=== PATIENT | female | born 1970 | race Caucasian/White ===

== ENCOUNTER 2018-03-26 15:32 | Emergency (ER) | END 2018-03-26 16:49 | disposition home or self-care (01) ==

== ENCOUNTER 2018-06-02 03:32 | Emergency (ER) | payer MEDICAID, OTHER ==
[~2018-06-02] VITALS: Wt 84.7 kg
[~2018-06-02 03:32] MED LIST: IBUP-1542 PO
--- NOTE | 2018-06-02 03:51 | ERD ---
ER Documentation Chief Complaint Chief Complaint POSSIBLE RT OVARIAN CYST X'S 1 MONTHS HPI The patient is a 47-year-old female, presenting to the ER because of possible right ovarian cyst after she was examined by her physician more than a month ago on routine gynecological exam. She has not been able to obtain a pelvic ultrasound, she denies fever, chills, weight loss, neck pain, chest pain, dyspnea, abdominal pain, vomiting, dysuria, diarrhea. She does not drink, smokes socially Past medical/surgical history: None ROS All systems reviewed and are negative except as per history of present illness. Medications Home Meds Active Scripts Cephalexin* (Cephalexin*) 500 Mg Capsule, 500 MG PO Q6, #28 CAP Prov:SANJEEV OH MD 06/02/18 Sulfamethoxazole/Trimethoprim* (Bactrim Ds* Tablet) 1 Each Tablet, 1 TAB PO BID, #14 TAB Prov:SANJEEV OH MD 06/02/18 Discontinued Scripts Ibuprofen* (Motrin*) 600 Mg Tab, 600 MG PO Q6, #30 TAB Prov:SEAN PATEL PA-C 03/26/18 Allergies Allergies: Coded Allergies: Sulfa (Sulfonamide Antibiotics) (Unverified Allergy, Unknown, RASHES, 06/02/18) clindamycin (Unverified Adverse Reaction, Unknown, NAUSEA; DIZZINESS, 06/02/18) PMhx/Soc History of Surgery: No Anesthesia Reaction: No Hx Neurological Disorder: No Hx Respiratory Disorders: No Hx Cardiac Disorders: No Hx Psychiatric Problems: No Hx Miscellaneous Medical Probl: No Hx Alcohol Use: No Hx Substance Use: No Hx Tobacco Use: No Physical Exam Vitals Vital Signs Date Temp Pulse Resp B/P (MAP) Pulse Ox O2 O2 Flow FiO2 Time Delivery Rate 06/02/18 96.2 68 20 110/75 99 Room Air 04:06 (87) 06/02/18 96.2 81 20 104/74 97 03:36 (84) Physical Exam Const: No acute distress. Head: Atraumatic. Eyes: Normal Conjunctiva. ENT: Normal External Ears, Nose and Mouth. Neck: Full range of motion. No meningismus. Resp: Clear to auscultation bilaterally. Cardio: Regular rate and rhythm. Abd: Soft, non distended, normal bowel sounds, non tender. Skin: No petechiae or rashes. Back: No midline or flank tenderness. Ext: No cyanosis, or edema. Neur: Awake and alert. No focal deficit Psych: Normal Mood and Affect. Results 24 hrs Laboratory Tests Test 06/02/18 04:49 06/02/18 04:51 Bedside Urine pH (LAB) 5.5 Bedside Urine Protein (LAB) Negative Bedside Urine Glucose (UA) Negative Bedside Urine Ketones (LAB) Negative Bedside Urine Blood Negative Bedside Urine Nitrite (LAB) Negative Bedside Urine Leukocyte Esterase (L 1+ POC Beta HCG, Qualitative NEGATIVE Procedures/MDM [place] [address] Radiology Main Line: [phone] DIAGNOSTIC IMAGING REPORT Patient: SAVANNAH MASSEY : 1970 Age: 47 Sex: F MR #: [id number] DOS: 06/02/18 0410 Ordering MD: SANJEEV OH MD Location: E/R Room/Bed: PROCEDURE: US Pelvis. CLINICAL INDICATION: Pelvic pain TECHNIQUE: Multiple sonographic images of the pelvis were obtained utilizing a transabdominal and endovaginal technique. The images were reviewed on a PACS workstation. COMPARISON: None. FINDINGS: The uterus measures 5.8 x 2 on of 4.7 cm. There is no appreciable thickening of the endometrium with measured thickness 1 mm. No uterine lesions identified. The ovaries are not clearly visualized. No adnexal lesions demonstrated. There is no visible pelvic free fluid. IMPRESSION: Unremarkable appearance of the uterus. Ovaries not visualized, likely obscured by shadowing bowel gas. No adnexal lesions or evidence of pelvic free fluid. RPTAT: [facility] Physician Leonela Date Time Electronically viewed and signed by Physician Leonela on 06/02/2018 05:15 xB/ CC: SANJEEV OH MD [phone] MEDICAL MAKING DECISION: The patient is a 47-year-old female, presenting with acute cystitis, is stable for outpatient follow-up The differential diagnoses considered include but are not limited to PID, ovarian cyst, endometriosis, fibroids, appendicitis. Departure Diagnosis: Primary Impression: UTI (urinary tract infection) Condition: Good Comments She was discharged with Keflex I discussed the findings with the patient. I advised the patient to follow-up with the primary physician in about 2-3 days, sooner if needed and return if any concern. Disclaimer: Inadvertent spelling and grammatical errors are likely due to EHR/dictation software use and do not reflect on the overall quality of patient care. Also, please note that the electronic time recorded on this note does not necessarily reflect the actual time of the patient encounter. SANJEEV OH MD Jun 02, 2018 03:51
[2018-06-02] MEDS ORDERED: SULF1TAB31 PO (05:32)
[2018-06-02] MEDS ORDERED: CEPH500C PO (05:33)
[2018-06-02 05:45] VITALS: BP 117/72; PULSE 71; RESP 17
== END 2018-06-02 05:33 | disposition home or self-care (01) ==
LOC: E/R 03:32
DX: N39.0 Urinary tract infection, site not specified (principal); R10.2 Pelvic and perineal pain
CPT/HCPCS: 76830; 76856; 81003; 81025; Z7502

== ENCOUNTER 2018-10-05 21:48 | Emergency (ER) | payer MEDICAID, OTHER ==
[~2018-10-05] VITALS: Wt 86.1 kg
[~2018-10-05 21:48] MED LIST changes: +CEPH500C PO; -IBUP-1542 PO; +SULF1TAB31 PO
[2018-10-05 22:11] VITALS: BP 142/86; PULSE 82; RESP 18
[2018-10-06] MEDS ORDERED: BENZ200C68 PO (01:22)
[2018-10-06] MEDS ORDERED: ALBU18HF INHALATION (01:22)
--- NOTE | 2018-10-06 01:40 | ERD ---
ER Documentation Chief Complaint Chief Complaint CONGESTION, COUGH X'S 1 MONTH HPI Patient is a 47-year-old female with no significant past medical history presenting to the emergency department complains of intermittent cough for the past 1 month. Symptoms moderate in severity. Also reports intermittent nasal congestion. Symptoms are worse during the day. She denies any hemoptysis, fevers, chills, night sweats, or other symptoms at this time. ROS All systems reviewed and are negative except as per history of present illness. Medications Home Meds Active Scripts Albuterol Sulfate* (Ventolin HFA*) 18 Gm Hfa.aer.ad, 2 PUFF INHALATION Q4H, #1 INHALER Prov:JAY FRIEDMAN PA-C 10/06/18 Benzonatate* (Benzonatate*) 200 Mg Capsule, 200 MG PO TID PRN for COUGH, #15 CAP Prov:JAY FRIEDMAN PA-C 10/06/18 Cephalexin* (Cephalexin*) 500 Mg Capsule, 500 MG PO Q6, #28 CAP Prov:SANJEEV OH MD 06/02/18 Sulfamethoxazole/Trimethoprim* (Bactrim Ds* Tablet) 1 Each Tablet, 1 TAB PO BID, #14 TAB Prov:SANJEEV OH MD 06/02/18 Allergies Allergies: Coded Allergies: Sulfa (Sulfonamide Antibiotics) (Unverified Allergy, Unknown, RASHES, 06/02/18) clindamycin (Unverified Adverse Reaction, Unknown, NAUSEA; DIZZINESS, 06/02/18) PMhx/Soc History of Surgery: No Anesthesia Reaction: No Hx Neurological Disorder: No Hx Respiratory Disorders: Yes (COPD) Hx Cardiac Disorders: No Hx Psychiatric Problems: No Hx Miscellaneous Medical Probl: No Hx Alcohol Use: Yes (Every once in a while) Hx Substance Use: No Hx Tobacco Use: Yes Smoking Status: Current every day smoker FmHx Family History: No diabetes Physical Exam Vitals Vital Signs Date Temp Pulse Resp B/P (MAP) Pulse Ox O2 O2 Flow FiO2 Time Delivery Rate 10/05/18 80.0 82 18 142/86 100 22:11 (104) Physical Exam Const: No acute distress Head: Atraumatic Eyes: Normal Conjunctiva ENT: Normal External Ears, Nose and Mouth. Neck: Full range of motion. No meningismus. Resp: Clear to auscultation bilaterally Cardio: Regular rate and rhythm, no murmurs Skin: No petechiae or rashes Ext: No cyanosis, or edema Neur: Awake and alert Psych: Normal Mood and Affect Results 24 hrs [place] [address] Radiology Main Line: [phone] DIAGNOSTIC IMAGING REPORT Patient: SAVANNAH MASSEY : 1970 Age: 47 Sex: F MR #: [id number] DOS: 10/05/18 0000 Ordering MD: JAY FRIEDMAN PA-C Location: FTE Room/Bed: PROCEDURE: Chest. CLINICAL INDICATION: Cough. TECHNIQUE: Single frontal view of the chest was obtained. COMPARISON: None. FINDINGS: The cardiac silhouette is magnified. The aortic arch is unremarkable. There is no focal consolidation, vascular congestion or pleural effusion. There is no pneumothorax. IMPRESSION: No evidence for active cardiopulmonary disease. .Woody Lowe MD, MD Date Time Electronically viewed and signed by .Woody Lowe MD MD on 10/06/2018 01:15 .T/ CC: JAY FRIEDMAN PA-C [phone] Procedures/MDM 47-year-old female presenting to the emergency department complaining of intermittent cough for the past 1 month. Chest x-ray was negative for any signs of pneumothorax, consolidation, or other emergencies. The full report interpreted by the radiologist may be viewed above. Patient stable for discharge and further outpatient management. No evidence of pneumonia, sepsis, or other emergencies. Patient was in agreement with the diagnosis, plan, need for follow-up, return precautions. No evidence of life-threatening or emergent pathology at time of discharge. Patient's blood pressure was elevated (>120/80) but appears stable without evidence of hypertension emergency or urgency. The patient is to follow-up and pursue outpatient monitoring and therapy with their primary care physician within 1 week and return immediately if they have any new, worsening, or concerning symptoms. Departure Diagnosis: Primary Impression: Cough Condition: Fair Patient Instructions: Cough, Chronic, Uncertain Cause, (Adult) Referrals: [facility] YOU HAVE RECEIVED A MEDICAL SCREENING EXAM AND THE RESULTS INDICATE THAT YOU DO NOT HAVE A CONDITION THAT REQUIRES URGENT TREATMENT IN THE EMERGENCY DEPARTMENT. FURTHER EVALUATION AND TREATMENT OF YOUR CONDITION CAN WAIT UNTIL YOU ARE SEEN IN YOUR DOCTORS OFFICE WITHIN THE NEXT 1-2 DAYS. IT IS YOUR RESPONSIBILITY TO MAKE AN APPOINTMENT FOR FOLOW-UP CARE. IF YOU HAVE A PRIMARY DOCTOR --you should call your primary doctor and schedule an appointment IF YOU DO NOT HAVE A PRIMARY DOCTOR YOU CAN CALL OUR PHYSICIAN REFERRAL HOTLINE AT IF YOU CAN NOT AFFORD TO SEE A PHYSICIAN YOU CAN CHOSE FROM THE FOLLOWING [facility] [address] [facility]. [facility] [address] [facility] [address] [facility] [address] [facility]. [facility] [address] [facility]. [facility]. [address] Additional Instructions: Call your primary care doctor TOMORROW for an appointment during the next 1-2 days.See the doctor sooner or return here if your condition worsens before your appointment time. JAY FRIEDMAN PA-C October 06, 2018 01:40
== END 2018-10-06 01:34 | disposition home or self-care (01) ==
LOC: FTE 21:48
DX: R05 Cough (principal); J44.9 Chronic obstructive pulmonary disease, unspecified; F17.210 Nicotine dependence, cigarettes, uncomplicated
CPT/HCPCS: 71045; Z7502